=== PATIENT | female | born 1995 | race Caucasian/White ===

== ENCOUNTER 2020-08-06 14:41 | Emergency (ER) | payer MEDICAID, SELFPAY ==
[~2020-08-06] VITALS: Ht 180.3 cm; Wt 57.0 kg
[2020-08-06 15:21] LABS: BASO % 0.1 % (0.0-1.0); EOS # 0.1 10^3/uL (0.0-0.5); HEMATOCRIT 36.3 % (36.0-47.0); HEMOGLOBIN 12.4 g/dl (12.0-15.5); LYMPH % 26.3 % (24.0-44.0); MEAN CORPUSCULAR HEMOGLOBIN 32.6 pg (27.0-33.0); MEAN CORPUSCULAR HGB CONC 34.2 g/dl (32.0-36.5); MEAN CORPUSCULAR VOLUME 95.5 fl (80.0-96.0); MONO # 0.4 10^3/uL (0.0-0.8); MONO % 5.3 % (0.0-5.0); NEUTROPHILS # 5.2 10^3/uL (1.5-8.5); NEUTROPHILS % 66.9 % (36.0-66.0); PLATELET COUNT, AUTOMATED 212 10^3/uL (150-450); WHITE BLOOD COUNT 7.8 10^3/uL (4.0-10.0)
[2020-08-06 15:22] LABS: BILIRUBIN, URINE MANUAL OBSCURED (NEGATIVE); GLUCOSE, URINE (UA) MANUAL NEGATIVE (NEGATIVE); KETONE, URINE MANUAL OBSCURED mg/dL (NEGATIVE); UROBILINOGEN, URINE MANUAL OBSCURED mg/dl (NORMAL)
[2020-08-06 15:26] LABS: BACTERIA, URINE SMALL AMOUNT; HYALINE CAST, URINE NONE SEEN /lpf (0-1); RBC, URINE TNTC /hpf (0-3); SQUAMOUS EPITHELIAL CELL URINE LARGE AMOUNT /hpf (SMALL AMT)
[2020-08-06 16:05] LABS: BLOOD UREA NITROGEN 11 MG/DL (7-18); CALCIUM LEVEL 8.8 MG/DL (8.5-10.1); CARBON DIOXIDE LEVEL 28 MEQ/L (21-32); CHLORIDE LEVEL 104 MEQ/L (98-107); CREATININE FOR GFR 0.77 MG/DL (0.55-1.30); GLOMERULAR FILTRATION RATE > 60.0 (>60); GLUCOSE, FASTING 84 MG/DL (70-100); HCG, SERUM QUANTITATIVE 9248 MIU/ML; POTASSIUM SERUM 3.8 MEQ/L (3.5-5.1); SODIUM LEVEL 136 MEQ/L (136-145)
--- NOTE | 2020-08-06 17:04 | REP ---
INDICATION: vaginal bleeding, + . COMPARISON: None. TECHNIQUE: Transabdominal scanning FINDINGS: The uterus is anteverted. It measures 9.2 x 5.7 by 6.2 cm. This is a gestational sac in the fundus. Within it is a pole with a crown-rump length of 2 mm corresponding to 5 weeks 5 days. heart activity at 88 BPM. On the left lateral aspect of the gestational sac is a subchorionic bleed measuring 2.1 x 1.7 x 1.1 cm. There is a yolk sac evident. No fluid in the endocervical canal suggested. There is no free fluid in the cul-de-sac. Right ovary not observed. The left ovary shows no mass or enlargement. No adjacent fluid. IMPRESSION: 1. Single intrauterine gestation at 5 weeks 5 days by composite ultrasound criteria and LMP. This gives an EDC of 04/03/2021. 2. heart activity 888 BPM 3. Subchorionic bleed to the left of the gestational sac 2.1 x 1.7 x 1.1 cm. No other findings. <Electronically signed by Mac Butterfield > 08/06/20 [id number]
[2020-08-06 17:33] VITALS: BP 103/56
== END 2020-08-06 17:35 | disposition home or self-care (01) ==
LOC: M ED 14:41
DX: O36.8911 Maternal care for other specified fetal problems, first trimester, fetus 1 (principal); Z3A.01 Less than 8 weeks gestation of pregnancy; Z87.891 Personal history of nicotine dependence

== ENCOUNTER → 2020-08-16 | Outpatient (REF) | payer MEDICAID ==
[2020-08-16 13:23] LABS: HEMATOCRIT 38.3 % (36.0-47.0); HEMOGLOBIN 12.7 g/dl (12.0-15.5); MEAN CORPUSCULAR HEMOGLOBIN 32.4 pg (27.0-33.0); MEAN CORPUSCULAR HGB CONC 33.2 g/dl (32.0-36.5); MEAN CORPUSCULAR VOLUME 97.7 fl (80.0-96.0); PLATELET COUNT, AUTOMATED 218 10^3/uL (150-450); RED BLOOD COUNT 3.92 10^6/uL (4.00-5.40); WHITE BLOOD COUNT 7.6 10^3/uL (4.0-10.0)
[2020-08-16 14:17] LABS: HEPATITIS B SURFACE ANTIGEN NEGATIVE (NEGATIVE); HEPATITIS C VIRUS ABY INDEX < 0.0 INDEX (<0.8); HIV 1&2 SCREEN CENTAUR NEGATIVE (NEGATIVE)
== END ==
LOC: M LAB REF 12:33
PROVIDERS: ATTEND Advanced Practice Midwife
DX: Z34.81 Encounter for supervision of other normal pregnancy, first trimester (principal)

== ENCOUNTER → 2020-08-19 | Outpatient (CLI) | payer MEDICAID ==
--- NOTE | 2020-08-19 16:44 | REP ---
INDICATION: HEMMORHAGE IN EARLY . COMPARISON: 08/06/2020 TECHNIQUE: Transvesical only FINDINGS: Once again, there is an intrauterine the mean crown-rump length measurement of which today is consistent with a 7 week 0 day gestational age. Based on that the estimated date of delivery is 04/07/2021. Doppler interrogation of the heart shows a heart rate of 171 beats per minute. Inferior to the gestational sac note is again made of an area of decreased echoes which today measures approximately 2.2 x 0.7 x 3.1 cm. This previously measured 2.1 x 1.7 x 1.1 cm. IMPRESSION: Single living intrauterine gestation as described above. The previously reported subchorionic hemorrhage may have increased slightly in size. Continued surveillance is recommended. <Electronically signed by Luis Harrison > 08/19/20 [id number]
== END ==
LOC: M RAD 11:16
PROVIDERS: ATTEND Advanced Practice Midwife
DX: O20.9 Hemorrhage in early pregnancy, unspecified (principal); Z3A.01 Less than 8 weeks gestation of pregnancy

== ENCOUNTER → 2020-10-14 | Outpatient (REF) | payer MEDICAID | LOC: M LAB REF 12:22 | PROVIDERS: ATTEND Advanced Practice Midwife | DX: Z34.82 Encounter for supervision of other normal pregnancy, second trimester (principal) ==

== ENCOUNTER → 2020-11-15 | Outpatient (CLI) | payer MEDICAID, OTHER ==
--- NOTE | 2020-11-15 08:41 | REP ---
INDICATION: ENCOUNTER FOR SUPRVSN OF NORMAL PREGNACY COMPARISON: None. TECHNIQUE: Transabdominal obstetrical ultrasound with color Doppler evaluation. FINDINGS: Examination demonstrates a single live intrauterine in breech presentation. motion is identified by technologist. Placenta is noted anterior/right lateral and grade 1 without evidence for placenta previa or abruption. Amniotic fluid volume is normal. Cervix measures 4.5 cm in length and appears closed.. Gestational age by LMP 20 weeks 1 day with KP 04/03/2021. Gestational age by current measurements 20 weeks 6 days with KP 03/29/2021. FHR equals beats per minute. BPD: 5.1 cm 21 weeks 3 days HC: 18.2 cm there is 20 weeks 4 days AC: 16.6 cm 21 weeks 4 days FL: 3.3 cm 20 weeks 1 day HL: 3.1 cm 20 weeks 3 days HC/AC: 1.10 Estimated weight 389 grams. Anatomical assessment demonstrates normal structures including cranium, choroid plexus, cavum, cerebellum/posterior fossa, facial features, lungs, four-chamber heart/ventricular outflow tracts, diaphragm, stomach, cord insertion, kidneys/bladder, and extremities. Limited evaluation of the spine due to positioning. Single umbilical artery noted within the cord. IMPRESSION: Single live intrauterine in breech presentation demonstrating appropriate interval growth. Anatomical findings as described above may warrant follow-up. <Electronically signed by Irvin Nobles > 11/15/20 [id number]
== END ==
LOC: M RAD 06:27
PROVIDERS: ATTEND Advanced Practice Midwife
DX: Z34.82 Encounter for supervision of other normal pregnancy, second trimester (principal)

== ENCOUNTER → 2020-12-26 | Outpatient (CLI) | payer OTHER ==
--- NOTE | 2020-12-26 10:50 | REP ---
INDICATION: ANATOMY F/U COMPARISON: 11/15/2020 TECHNIQUE: Transabdominal obstetrical ultrasound with color Doppler evaluation. FINDINGS: Examination demonstrates a single live intrauterine in cephalic presentation. motion is identified by technologist. Placenta is noted anterior/right lateral and grade 1 without evidence for placenta previa or abruption. Amniotic fluid volume is normal. Cervix measures 5.8 cm in length and appears closed.. Gestational age by LMP and 1st ultrasound 26 weeks 0 days with KP 04/03/2021. Gestational age by current measurements 27 weeks 1 day with KP 03/26/2021. FHR equals 133 beats per minute. Estimated weight 1024 grams (83rdpercentile). Anatomical assessment demonstrates normal structures including left kidney, bladder, and spine. Two vessel cord again noted. IMPRESSION: 1. Appropriate interval growth. 2. 2 vessel cord again noted. 3. Images of the spine now complete and normal. <Electronically signed by Irvin Nobles > 12/26/20 [id number]
== END ==
LOC: M RAD 09:31
PROVIDERS: ATTEND Advanced Practice Midwife
DX: Z34.92 Encounter for supervision of normal pregnancy, unspecified, second trimester (principal); Z3A.26 26 weeks gestation of pregnancy

== ENCOUNTER → 2021-01-11 | Outpatient (CLI) | payer OTHER ==
[2021-01-11 12:12] LABS: HEMATOCRIT 33.4 % (36.0-47.0); HEMOGLOBIN 11.7 g/dl (12.0-15.5); MEAN CORPUSCULAR HEMOGLOBIN 33.9 pg (27.0-33.0); MEAN CORPUSCULAR VOLUME 96.8 fl (80.0-96.0); PLATELET COUNT, AUTOMATED 188 10^3/uL (150-450); RED BLOOD COUNT 3.45 10^6/uL (4.00-5.40); WHITE BLOOD COUNT 9.9 10^3/uL (4.0-10.0)
== END ==
LOC: M LAB 10:26
PROVIDERS: ATTEND Advanced Practice Midwife
DX: Z34.82 Encounter for supervision of other normal pregnancy, second trimester (principal)

== ENCOUNTER 2021-02-06 15:01 | Emergency (ER) | payer OTHER ==
[~2021-02-06] VITALS: Ht 177.8 cm; Wt 66.5 kg
[2021-02-06 15:01] VITALS: BP 112/57
== END 2021-02-06 15:51 | disposition left against medical advice (07) ==
LOC: M ED 15:01
DX: Z53.21 Procedure and treatment not carried out due to patient leaving prior to being seen by health care provider (principal)

== ENCOUNTER → 2021-03-02 | Outpatient (REF) | payer MEDICAID, OTHER | LOC: M LAB REF 12:01 | PROVIDERS: ATTEND Advanced Practice Midwife | DX: Z34.83 Encounter for supervision of other normal pregnancy, third trimester (principal) ==

== ENCOUNTER 2021-03-11 17:28 | Outpatient (CLI) | payer MEDICAID ==
[~2021-03-11] VITALS: Ht 180.3 cm; Wt 66.5 kg
[2021-03-11 17:45] VITALS: BP 112/64
[2021-03-11] MEDS ORDERED: PRENTAB9 PO (17:52)
[2021-03-11] MEDS ORDERED: TUMS750C5 PO (17:53)
[2021-03-11] MEDS ORDERED: ZOFR4TAB16 SL (17:53)
[2021-03-11 18:27] VITALS: BP 98/53
[2021-03-11 18:46] VITALS: BP 115/59
--- NOTE | 2021-03-11 18:47 | IPNPDOC ---
Text Note Date of Service The patient was seen on 03/11/21. NOTE Triage Note Katarina is a 25yo with SIUP at 36w2d presenting for ctx that started around 3pm this afternoon. She had a baby shower earlier in the day and believes she has been hydrating well. No LOF, no vaginal bleeding. Feels good movement. Vitals wnl, afebrile Gen: WDWN, resting comfortably in bed Abdomen: soft, gravid, NTTP Extremities: no edema BLE SCE: 2/thick/-2, posterior Cat I FHRT with +accels, -decels, mod cinthia [place]: irregular ctx Assessment: Katarina is a 25yo with SIUP at 36w2d with NO e/o active labor. SCE 2/thick/-2, posterior. Irregular ctx on toco. Reassuring assessment. Plan: -Safe for discharge home -follow up at routine OB visit this week -discussed return precautions at length -continue to hydrate well Pao Alcaraz MD VS,Jessy, I+O VSJessy, I+O Vital Signs Date Time Temp Pulse Resp B/P (MAP) Pulse Ox O2 Delivery O2 Flow Rate FiO2 03/11/21 18:27 85 20 98/53 (68) 03/11/21 18:00 97.8 03/11/21 17:45 98 Room Air Pao Alcaraz MD Mar 11, 2021 18:47
== END 2021-03-11 18:59 | disposition home or self-care (01) ==
LOC: M LDO 17:28
PROVIDERS: ATTEND Obstetrics & Gynecology
DX: O47.03 False labor before 37 completed weeks of gestation, third trimester (principal); Z3A.36 36 weeks gestation of pregnancy

== ENCOUNTER 2021-03-17 20:04 | Outpatient (CLI) | payer MEDICAID ==
[~2021-03-17] VITALS: Ht 180.3 cm; Wt 66.1 kg
[~2021-03-17 20:04] MED LIST: PRENTAB9 PO; TUMS750C5 PO; ZOFR4TAB16 SL
[2021-03-17 20:21] VITALS: BP 115/72
[2021-03-17 21:05] VITALS: BP 116/54
--- NOTE | 2021-03-17 21:19 | IPNPDOC ---
Text Note Date of Service The patient was seen on 03/17/21. NOTE Outpatient 25yo KP 04/03/2021. Presents @ 37w4d with complaints of contractions. Pt has been evaluated frequently over the last few weeks for similar reports. SVE today in office -. Cat I tracing. UC 5-7 minutes apart x 60 seconds, mild SVE /-2, unchanged. scant show on glove. Offered IV hydration with sedation. Pt declined Desires discharge. Routine precautions reviewed. Keep appt next week. VS,Fishbone, I+O VS, Fishbone, I+O Vital Signs Date Time Temp Pulse Resp B/P (MAP) Pulse Ox O2 Delivery O2 Flow Rate FiO2 03/17/21 20:21 98.2 85 16 115/72 (86) 99 Room Air Vicki Ortiz CNM Mar 17, 2021 21:19
== END 2021-03-17 21:15 | disposition home or self-care (01) ==
LOC: M LDO 20:04
PROVIDERS: ATTEND Advanced Practice Midwife
DX: O47.1 False labor at or after 37 completed weeks of gestation (principal); Z3A.37 37 weeks gestation of pregnancy

== ENCOUNTER 2021-03-18 23:35 | Inpatient (IN) | payer MEDICAID ==
[~2021-03-18] VITALS: Ht 180.3 cm; Wt 67.0 kg
[2021-03-18 23:42] VITALS: BP 122/65
[2021-03-18] MEDS ORDERED: LACTATED RINGER'S 1000 ML IV STA (23:49)
[2021-03-18] MEDS ORDERED: LR 1,000 ML IV SCH (23:50)
[2021-03-19] VITALS (35 sets, daily range): BP systolic 95–132; BP diastolic 53–87
[2021-03-19] MEDS ORDERED: FENTANYL 2MCG/ML ROPIVACAINE 0.2% IN 0.9% NACL 100ML IVBAG As Ordered ONE (00:12)
[2021-03-19 00:17] LABS: HEMATOCRIT 37.1 % (36.0-47.0); HEMOGLOBIN 13.2 g/dl (12.0-15.5); MEAN CORPUSCULAR HEMOGLOBIN 33.9 pg (27.0-33.0); MEAN CORPUSCULAR HGB CONC 35.6 g/dl (32.0-36.5); MEAN CORPUSCULAR VOLUME 95.4 fl (80.0-96.0); PLATELET COUNT, AUTOMATED 194 10^3/uL (150-450); RED BLOOD COUNT 3.89 10^6/uL (4.00-5.40); WHITE BLOOD COUNT 16.2 10^3/uL (4.0-10.0)
[2021-03-19] MEDS ORDERED: ONDANSETRON 4MG/2ML VIAL IV PRN (01:25)
[2021-03-19] MEDS ORDERED: EPIDURAL/PCA KEYS XX PRN (01:25)
[2021-03-19] MEDS ORDERED: diphenhydrAMINE 50MG/ML VIAL (J1200) IV PRN (01:25)
[2021-03-19] MEDS ORDERED: NALOXONE INJ 0.4MG/1ML VIAL (J2310 PER 1MG) IV PRN (01:25)
[2021-03-19] MEDS ORDERED: LACTATED RINGER'S 1000 ML IV PRN (01:25)
[2021-03-19] MEDS ORDERED: ePHEDrine SULFATE 25 MG/5 ML(5MG/ML) SYRINGE IV PRN (01:25)
[2021-03-19] MEDS ORDERED: REFRIGERATOR IV KEYS XX PRN (01:25)
[2021-03-19] MEDS ORDERED: FENTANYL/ROPIVACAINE/NACL BAG 100 ML EPIDURAL SCH (01:25)
[2021-03-19] MEDS ORDERED: EPIDURAL COMMENT XX SCH (01:25)
[2021-03-19] MEDS ORDERED: OXYTOCIN 30 UNITS IN 0.9% NaCl 500ML IV BAG (J2590) As Ordered ONE (06:23)
[2021-03-19 07:03] LABS: CORD GAS HCO3 V 26.7 MEQ/L; CORD GAS O2 SAT V 80.2 %; CORD GAS PCO2 V 46.3 mmHg; CORD GAS PH V 7.378 UNITS; CORD GAS PO2 V 31.9 mmHg; CORD GAS SBC V 24.9 MEQ/L; CORD GAS TCO2 V 28.1 MEQ/L
[2021-03-19 07:05] LABS: CORD GAS ABE A -2.2; CORD GAS HCO3 A 23.9 MEQ/L; CORD GAS O2 SAT A 53.8 %; CORD GAS PCO2 A 45.8 mmHg; CORD GAS PH A 7.336 UNITS; CORD GAS PO2 A 21.6 mmHg; CORD GAS SBC A 21.6 MEQ/L; CORD GAS TCO2 A 25.3 MEQ/L
[2021-03-19] MEDS ORDERED: ACETAMINOPHEN TAB 650MG DOSE (2X325MG) PO PRN (07:25)
[2021-03-19] MEDS ORDERED: DOCUSATE SODIUM 100MG CAPSULE PO PRN (07:25)
[2021-03-19] MEDS ORDERED: OXYTOCIN DRIP 30 UNITS in IV 1 EA IV SCH (07:25)
[2021-03-19] MEDS ORDERED: IBUPROFEN 600MG TAB PO PRN (07:25)
[2021-03-19] MEDS ORDERED: IBUPROFEN 800 MG TAB PO PRN (07:25)
[2021-03-19] MEDS ORDERED: RHOGAM 300 MCG (1500 IU) INJ (J2790) IM SCH (07:25)
[2021-03-19] MEDS ORDERED: MEASLES,MUMPS,RUBELLA VACCINE INJ (MMR-II) (90707) SC SCH (07:25)
[2021-03-19] MEDS ORDERED: METHYLERGONOVINE MALEATE 0.2 MG TAB PO PRN (07:25)
[2021-03-19] MEDS ORDERED: ACETAMINOPHEN 500 MG TAB PO PRN (07:25)
[2021-03-19] MEDS: PRENATAL VITAMINS CHEWABLE TABLET PO SCH (09:17)
--- NOTE | 2021-03-19 10:37 | DN ---
DELIVERY NOTE DATE OF DELIVERY: 03/19/2021 TIME OF : GENDER: Female APGARS: 8 and 9. LACERATIONS: ANESTHESIA: ESTIMATED BLOOD LOSS: 300 mL. COUNTS: DESCRIPTION OF DELIVERY: Katarina is a 25-year-old female 2, para 1,0,0,1 who was admitted at 37-6/7 weeks gestation in active labor. She progressed to fully dilated and pushing. Artificial rupture of membranes was done for clear fluid. She then delivered a live female infant in left occiput anterior position over intact perineum, Apgars 8 and 9, weight 6 pounds 11 ounces. Placenta delivered manually intact, three vessel cord. Both mother and baby in stable condition. cc: [facility] Edited: christiana 03/20/2021 [id number] MTDD
--- NOTE | 2021-03-19 13:51 | HPE ---
HISTORY AND PHYSICAL DATE OF ADMISSION: 03/18/2021 HISTORY OF PRESENT ILLNESS: The patient is a 25-year-old female 2, para 1-0-0-1 with an estimated date of confinement (EDC) of 04/03/2021, estimated gestational age (EGA) 37-6/7 weeks gestation who presented to labor and delivery with complaints of contractions every 4-5 minutes. Patient was there yesterday, was found to be 3 cm. Upon evaluation, she was found to be in active labor. At this point, a decision was made for admission. Her record was reviewed, which was essentially unremarkable. LABORATORIES: Blood type O positive. Rubella immune. Hepatitis negative. Human immunodeficiency virus (HIV) negative. Gonorrhea and chlamydia negative. One-hour glucose testing was within normal limits. Her group B Streptococcus (GBS) is negative. PAST MEDICAL HISTORY: Denies. PAST SURGICAL HISTORY: [place] tooth extraction. SOCIAL HISTORY: She is but . Denies any alcohol or drugs. She is a former smoker and former drug abuser. MEDICATIONS: None other than vitamin. ALLERGIES: No known drug allergies. PHYSICAL EXAMINATION: HEENT: Grossly within normal limits. ABDOMEN: Soft, nontender, nondistended. EXTREMITIES: No clubbing, cyanosis or edema. VAGINAL EXAM: 5 cm dilated, 80% effaced, fetus at -2 station, vertex position. TRACING: Tracing reviewed. Category 1 tracing with contractions every 4-5 minutes. ASSESSMENT: Intrauterine at 37-6/7 weeks' gestation in active labor. PLAN: Admit to labor and delivery. Pain management discussed. Patient opted for an epidural. Will continue to monitor. Anticipate delivery.
[2021-03-19] MEDS ORDERED: CALCIUM CARBONATE 500 MG CHEW U/D PO PRN (18:40)
[2021-03-20 06:00] VITALS: BP 131/64
[2021-03-20] MEDS ORDERED: INFLUENZA QUADRIVALENT PF VACCINE 0.5ML SYRINGE IM ONE (09:00)
[2021-03-20] MEDS ORDERED: BOOSTRIX/ADACEL VACCINE (DIPHTH/PERTUSS/ACELL/TETANUS) 0.5ML SYR IM ONE (09:00)
--- NOTE | 2021-03-20 09:09 | IPNPDOC ---
Progress Note Date of Service: Mar 20, 2021 Day#: 1 Progress Note PPD1 SUBJECT: aKtarina is a 25yo s/p uncomplicated after presenting in active labor at term, doing well day # 1. She has been ambulating, voiding spontaneously without issue and tolerating regular diet. Bottle feeding without issue. Reports lochia is like a normal period. No f/c/CP/SOB. OBJECTIVE: VITAL SIGNS: Within normal limits, afebrile. Alert and oriented times three. Abdomen: Fundus firm at U-2. Soft, NTTP. Extremities: no pain with palpation of calves ASSESSMENT: Katarina is a 25yo s/p uncomplicated after presenting in active labor at term, doing well day # 1. Vitals within normal limits, afebrile, hemodynamically stable with no evidence of infection. PLAN: 1. Discharge to home today. 2. Tylenol and Motrin for pain. Colace for bowel regimen. 3. Encourage ambulation and good hydration 4. Desires OCP and plan is for vasectomy, will re-address at pp visit 5. Routine PP visit in 6 weeks in clinic. 6. Discussed return precautions at length. Pao Alcaraz MD VS, I&O, 24H, Fishbone Vital Signs/I&O Vital Signs Date Time Temp Pulse Resp B/P (MAP) Pulse Ox O2 Delivery O2 Flow Rate FiO2 03/20/21 06:00 97.9 75 18 131/64 (86) 99 Room Air I&O- Last 24 Hours up to 6 AM 03/20/21 06:00 Intake Total 2146 ml Output Total 2550 ml Balance -404 ml Pao Alcaraz MD Mar 20, 2021 09:09
[2021-03-20] MEDS: PRENATAL VITAMINS CHEWABLE TABLET PO SCH (09:10)
[2021-03-20] MEDS ORDERED: DOK1CAP7 PO (09:13)
[2021-03-20] MEDS ORDERED: ACET-683 PO (09:13)
--- NOTE | 2021-03-20 09:20 | DS.PDOC ---
Discharge Summary General Date of Admission Mar 18, 2021 at 23:49 Date of Discharge Mar 20, 2021 Attending Physician: Venkat Vazquez DO Discharge Summary PROCEDURES PERFORMED DURING STAY: spontaneous vaginal delivery ADMITTING DIAGNOSES: 1. active labor at term DISCHARGE DIAGNOSES: 1. active labor at term COMPLICATIONS/CHIEF COMPLAINT: LABOR. HISTORY OF PRESENT ILLNESS/HOSPITAL COURSE: Katarina is a 25yo s/p uncomplicated after presenting in active labor at term, doing well day # 1. She has had a benign course. At time of discharge, vitals within normal limits, afebrile, hemodynamically stable with no evidence of infection. DISCHARGE MEDICATIONS: Please see below. ALLERGIES: Please see below. PHYSICAL EXAMINATION ON DISCHARGE: VITAL SIGNS: Within normal limits, afebrile. Alert and oriented times three. Abdomen: Fundus firm at U-2. Soft, NTTP. Extremities: no pain with palpation of calves LABORATORY DATA: Please see below. DISCHARGE INSTRUCTIONS: 1. Discharge to home today. 2. Tylenol and Motrin for pain. Colace for bowel regimen. 3. Encourage ambulation and good hydration 4. Desires OCP and plan is for vasectomy, will re-address at pp visit 5. Routine PP visit in 6 weeks in clinic. 6. Discussed return precautions at length. DISCHARGE CONDITION: Stable TIME SPENT ON DISCHARGE: Greater than 20 minutes. Vital Signs/I&Os Vital Signs Date Time Temp Pulse Resp B/P (MAP) Pulse Ox O2 Delivery O2 Flow Rate FiO2 03/20/21 06:00 97.9 75 18 131/64 (86) 99 Room Air I&O- Last 24 Hours up to 6 AM 03/20/21 06:00 Intake Total 2146 ml Output Total 2550 ml Balance -404 ml Discharge Medications Scheduled No.137/Iron/Folic Acd ( Vitamin Tablet) 1 Each Tablet, 1 TAB PO DAILY, (Reported) Scheduled PRN Acetaminophen (Acetaminophen) 500 Mg Tablet, 1,000 MG PO Q6HP PRN for PAIN LEVEL 6-10 Calcium Carbonate (Tums) 300 Mg Tab.chew, 1 TAB PO Q4HP PRN for INDIGESTION, (Reported) Docusate Sodium (Dok) 100 Mg Capsule, 100 MG PO BIDP PRN for CONSTIPATION Ondansetron HCl (Zofran) 4 Mg Tablet, 1 TAB SL Q6HP PRN for nausea/vomiting, (Reported) Allergies Coded Allergies: No Known Allergies (Unverified , 08/06/20) Pao Alcaraz MD Mar 20, 2021 09:20
== END 2021-03-20 10:20 | disposition home or self-care (01) | DRG 560 ==
LOC: M LDO 23:35 → M LDI 23:49 → M OBS 03-19 09:41
PROVIDERS: ADMIT Obstetrics & Gynecology; ATTEND Obstetrics & Gynecology
PROC: 10E0XZZ Delivery of Products of Conception, External Approach (ICD-10-PCS; principal; 2021-03-19)
PROC: 10907ZC Drainage of Amniotic Fluid, Therapeutic from Products of Conception, Via Natural or Artificial Opening (ICD-10-PCS; 2021-03-19)
DX: O80 Encounter for full-term uncomplicated delivery (principal); Z3A.37 37 weeks gestation of pregnancy; Z37.0 Single live birth